=== PATIENT | female | born 1970 | race Two or more races ===

== ENCOUNTER 2020-07-04 14:11 | Outpatient (CLI) | payer OTHER | END 2020-07-04 14:36 | disposition home or self-care (01) | LOC: SONOGRAMA 14:11 | PROVIDERS: ATTEND Surgery | DX: D24.1 Benign neoplasm of right breast (principal); D24.2 Benign neoplasm of left breast; N60.11 Diffuse cystic mastopathy of right breast; N60.12 Diffuse cystic mastopathy of left breast ==